=== PATIENT | male | born 1975 | race Caucasian/White ===

== ENCOUNTER → 2019-02-11 08:01 | Outpatient (CLI) | payer OTHER ==
--- NOTE | ~2019-02-11 | ST ---
PATIENT:AYO VARELA MEDICAL RECORD: [id number] SEX: M LOCATION:[facility] ORDER #: ADMISSION DATE: 02/11/19 AGE OF PATIENT: 43 REFERRING PHYSICIAN: INTERPRETING PHYSICIAN: FLAVIO PARMAR MD DATE OF SERVICE: 02/11/2019 Nuclear stress test INDICATION: Shortness of breath and family history of coronary artery disease. The patient was exercised on standard Anastacio protocol for 10 minutes achieving greater than 85% max target heart rate response with 32 mCi of sestamibi injected at peak stress, 11 mCi used previously for rest images. FINDINGS: Gated SPECT reveals preserved ejection fraction at 60% with good wall motion and thickening and brightening throughout all segments. SPECT imaging Cardiolite was used as myocardial fusion agent. There is homogeneous uptake throughout all segments at rest and stress with no evidence of inducible ischemia or previous infarction. OVERALL IMPRESSION: 1. This is a normal nuclear stress test with no evidence of inducible ischemia or previous infarction. 2. Gated SPECT reveals a preserved ejection fraction at 60%. In this patient with ongoing symptomatology, the current scan does not suggest the presence of hemodynamically significant coronary artery disease. Evaluate noncardiac etiology of chest pain. TRANSINT:[id number] Voice Confirmation ID: [id number] DOCUMENT ID: [id number] FLAVIO PARMAR MD CC: KRISHAN COLBY [id number] DICTATION DATE: 02/11/19 1502 VIDEO GAME PRODUCER: 02/12/19 0131 DEP CLI 02/11/19 [facility] [address] [place] [address]
== END | disposition home or self-care (01) ==
LOC: D.HCCARDIO 08:01
PROVIDERS: ATTEND Internal Medicine Interventional Cardiology
DX: R06.02 Shortness of breath (principal)